=== PATIENT | female | born 1995 | race Caucasian/White ===

== ENCOUNTER 2018-09-13 18:20 | Emergency (ER) | payer OTHER ==
[~2018-09-13] VITALS: Ht 170.2 cm; Wt 76.7 kg
[2018-09-13] MEDS ORDERED: ONDANSETRON HCL/PF 4 MG/2 ML VIAL IVP ONE (19:00)
[2018-09-13] MEDS ORDERED: IV NS 0.9% 1,000 ML BAG IV ONE (19:00)
--- NOTE | 2018-09-13 19:00 | NUR ---
ADDENDUM: Intravenous End Time Documentation: Normal saline 1 liter (IV-WO) : start time:1900 PM ; end time: 2029 PM : IV site: # 24 Port #1
--- NOTE | 2018-09-13 19:00 | NUR ---
PT BIBSELF COMPLAINING OF PELVIC PAIN X FEW DAYS. PT AXO4. RESPIRATIONS EVEN AND UNLABORED. PT PUT ON THE MONITOR AND PULSE OX.
[2018-09-13 19:14] LABS: APPEARANCE,URINE Cloudy (CLEAR); BILIRUBIN,URINE Negative (NEGATIVE); BLOOD, URINE Trace-intact Ery/uL (NEGATIVE); COLOR,URINE Yellow (YELLOW); KETONES,URINE Negative (NEGATIVE); LEUKOCYTE ESTERASE ,URINE Negative (NEGATIVE); NITRITE, URINE Negative (NEGATIVE); PH,URINE 8.5 (5.0-8.0); PROTEIN,URINE Negative (NEGATIVE); UGLUCOSE Negative (NEGATIVE); UROBILINOGEN,URINE 0.2 EU/dL (0.2)
--- NOTE | 2018-09-13 19:15 | NUR ---
PT AMBULATORY WITH STEADY GAIT TO BATHROOM. URINE SAMPLE OBTAINED AND SENT TO LAB.
[2018-09-13 19:24] LABS: BACTERIA,URINE Rare /HPF (None Seen); RBC,URINE 0-2 /HPF (0-2); SQUAMOUS EPITHELIAL CELL,UR Few /HPF (None Seen); WBC,URINE NONE SEEN /HPF (0-3)
[2018-09-13] MEDS ORDERED: ONDANSETRON HCL 4 MG/5 ML SOLUTION ONE (19:24)
[2018-09-13 19:29] LABS: BASOPHILS # (AUTO) 0.1 /CMM (0.0-0.2); EOSINOPHILS % (AUTO) 1.8 % (0.0-6.0); HEMATOCRIT 43 % (33-45); HEMOGLOBIN 14.7 g/dL (11.5-14.8); LYMPHOCYTES # (AUTO) 2.3 /CMM (0.8-4.8); LYMPHOCYTES % (AUTO) 32.4 % (20.0-44.0); MEAN CORPUSCULAR HGB CONC 34 g/dl (31.0-36.0); MEAN CORPUSCULAR VOLUME 88 fL (82-100); MONOCYTES # (AUTO) 0.5 /CMM (0.1-1.30); MONOCYTES % (AUTO) 7.1 % (2.0-12.0); NEUTROPHILS % (AUTO) 57.7 % (43.0-81.0); PLATELET COUNT (AUTO) 367 /CMM (150-450); RED BLOOD CELL COUNT(AUTO) 4.88 MIL/uL (4.0-5.2)
--- NOTE | 2018-09-13 19:30 | NUR ---
Note juanita in EDM - 09/13/18 at 205 by LAMAR PT BIBSELF COMPLAINING OF PELVIC PAIN X FEW DAYS. PT AXO4. RESPIRATIONS EVEN AND UNLABORED. PT PUT ON THE MONITOR AND PULSE OX.
[2018-09-13 19:37] LABS: CREATININE 0.6 mg/dL (0.6-1.3)
[2018-09-13 19:42] LABS: ALBUMIN 4.5 g/dL (3.4-5.0); BILIRUBIN,DIRECT 0.1 mg/dL (0.0-0.2); BILIRUBIN,TOTAL 0.5 mg/dL (0.2-1.0); TOTAL PROTEIN, SERUM 8.2 g/dL (6.4-8.2)
--- NOTE | 2018-09-13 20:52 | NUR ---
Patient discharged to home in stable condition. Written and verbal after care instructions given. Patient verbalizes understanding of instruction. IV removed. Catheter intact and site benign. Pressure and 4x4 applied to site. No bleeding noted.
[2018-09-13 20:53] VITALS: BP 133/84
== END 2018-09-13 20:54 | disposition home or self-care (01) ==
LOC: ER 18:30
DX: N83.202 Unspecified ovarian cyst, left side (principal); R11.10 Vomiting, unspecified; R19.7 Diarrhea, unspecified
CPT/HCPCS: 36415; 76856; 80048; 80076; 81001; 83690; 84703; 85025; 96361; 96374; 99284; J7030; 81000-TC; Q0162

== ENCOUNTER → 2019-07-22 | Emergency (ER) | payer OTHER ==
--- NOTE | 2019-07-22 18:22 | NUR ---
CALLED, NO ANSWER
== END | disposition left against medical advice (07) ==
LOC: ER 17:46
DX: Z53.21 Procedure and treatment not carried out due to patient leaving prior to being seen by health care provider (principal)

== ENCOUNTER 2022-11-03 19:40 | Emergency (ER) | payer OTHER ==
[~2022-11-03] VITALS: Ht 170.2 cm; Wt 67.1 kg
--- NOTE | 2022-11-03 19:57 | NUR ---
BIBS FOR MIDABD PAIN RADIATING TO EPIGASTRIC X4 DAYS 8/10 CONSTANT PRESSURE WITH INTERMITTENT EPISODES OF 10/10 SHARP PAIN. PT DENIES ANY ISSUES WITH BM/URINE. X1 EPISODE OF VOMITING WHILE AT THE GYM BUT OTHERWISE -N/V. AWAKE AND ALERT X4 RR EVEN AND UNLABORED. URINE COLLECTED AND V/S WNL.
[2022-11-03] MEDS ORDERED: IV NS 0.9% 1,000 ML BAG IV ONE (20:00)
[2022-11-03] MEDS ORDERED: ONDANSETRON HCL/PF 4 MG/2 ML VIAL IVP ONE (20:00)
[2022-11-03] MEDS ORDERED: FAMOTIDINE/PF INJ 20 MG/2 ML VIAL IV ONE ×2 (20:00→20:09)
[2022-11-03] MEDS ORDERED: ONDANSETRON HCL/PF 4 MG/2 ML VIAL ONE (20:09)
[2022-11-03 20:21] LABS: BASOPHILS % (AUTO) 0.6 % (0.0-2.0); EOSINOPHILS % (AUTO) 1.8 % (0.0-6.0); HEMATOCRIT 38 % (33-45); HEMOGLOBIN 12.5 g/dL (11.5-14.8); LYMPHOCYTES # (AUTO) 2.1 K/uL (0.8-4.8); LYMPHOCYTES % (AUTO) 31.5 % (20.0-44.0); MEAN CORPUSCULAR HGB CONC 33 g/dl (31.0-36.0); MEAN CORPUSCULAR VOLUME 86 fL (82-100); MONOCYTES # (AUTO) 0.5 K/uL (0.1-1.30); MONOCYTES % (AUTO) 6.7 % (2.0-12.0); NEUTROPHILS % (AUTO) 59.4 % (43.0-81.0); PLATELET COUNT (AUTO) 344 K/uL (150-450); RED BLOOD CELL COUNT(AUTO) 4.38 MIL/uL (4.0-5.2); WHITE BLOOD COUNT (AUTO) 6.8 K/uL (4.3-11.0)
[2022-11-03 20:23] LABS: BILIRUBIN,URINE NEGATIVE (NEGATIVE); COLOR,URINE YELLOW (YELLOW); LEUKOCYTE ESTERASE ,URINE NEGATIVE (NEGATIVE); NITRITE, URINE NEGATIVE (NEGATIVE); PROTEIN,URINE NEGATIVE (NEGATIVE); UGLUCOSE NEGATIVE (NEGATIVE)
[2022-11-03 20:32] LABS: ALBUMIN 3.8 g/dL (3.4-5.0); BILIRUBIN,DIRECT 0.1 mg/dL (0.0-0.2); BILIRUBIN,TOTAL 0.5 mg/dL (0.2-1.0); CALCIUM, SERUM 9.5 mg/dL (8.5-10.1); CREATININE 0.7 mg/dL (0.6-1.3); POTASSIUM 3.8 mmol/L (3.5-5.1); TOTAL PROTEIN, SERUM 7.3 g/dL (6.4-8.2)
[2022-11-03 20:38] LABS: BACTERIA,URINE None seen /HPF (None Seen); RBC,URINE NONE SEEN /HPF (0-2); SQUAMOUS EPITHELIAL CELL,UR None Seen /HPF (None Seen); URINE AMORPHOUS URATE Moderate /HPF (None Seen); WBC,URINE NONE SEEN /HPF (0-3)
[2022-11-03 21:35] VITALS: BP 144/90
== END 2022-11-03 21:36 | disposition home or self-care (01) ==
LOC: ER 19:43
DX: R10.84 Generalized abdominal pain (principal)
CPT/HCPCS: 99285; 74176; 96374; 96361; 96375; 85025; 80048; 87086; 83690; 80076; 84703; 81001; 36415; 84702; J3490; J2405; J7030